=== PATIENT | female | born 1965 | race Caucasian/White ===

== ENCOUNTER 2016-04-12 14:14 | Day surgery (SDC) | payer MEDICARE ==
--- NOTE | ~2016-04-12 | OP ---
Record Of Operation [facility] [address] [place]. [address] NAME: SILVIA PLUMMER : 67 STATUS : [facility]#: [id number] AGE: 50 ADM/REG DATE : 04/12/16 MR#: [id number] REPORT SERV DATE: 04/13/16 DICTATED BY: Rosalina HOLGUIN DATE: 04/12/16 REPORT STATUS : Draft TRANSCRIBED BY: STARLA DATE: 04/12/16 DATE OF PROCEDURE: 04/12/2016 PREOPERATIVE DIAGNOSIS: Left proximal ureteral stone. POSTOPERATIVE DIAGNOSIS: Left proximal ureteral stone. PROCEDURE: Left ureteral ESWL, retreatment. SURGEON: Rosalina Holguin M.D. ANESTHESIA: MAC. COMPLICATIONS: None. DRAINS: None. BRIEF HISTORY: Ms. Plummer is a 50-year-old, white female, who presented with an 8 mm left proximal ureteral stone and underwent ESWL on 03/18/2016. She passed some small fragments that had considerable residual stone. She has now 8 mm stone at L3-L4 on the left. She is here for retreatment. The risks of bleeding, infection, anesthesia, injury to adjacent organs, etc. were all discussed. There were no unanswered questions. DESCRIPTION OF PROCEDURE: Under excellent MAC anesthesia, the patient was placed supine on the [facility] [employer] [facility] [employer] lithotripsy unit #2. The aforementioned stone was localized at F2, and a total of 4000 shocks at a power level of up to 9.0 were delivered to the stone. The patient tolerated the procedure well and will be discharged as an outpatient with the following instructions. DISCHARGE INSTRUCTIONS: 1. Home today. 2. Strain all urine and save any fragments. 3. Percocet 5/325 one to two p.o. q.4 hours p.r.n. pain, #20. 4. Resume tamsulosin. 5. Follow in my office in one to two weeks with a KUB. If she is unable to pass the stone, the next step would be endoscopy. CHRISTEN/STARLA Rosalina Holguin M.D. / [id number] Record Of Operation [facility] [address] [place]. [address] NAME: SILVIA PLUMMER : 67 STATUS : [facility]#: [id number] AGE: 50 ADM/REG DATE : 04/12/16 MR#: [id number] REPORT SERV DATE: 04/13/16 DICTATED BY: Rosalina HOLGUIN DATE: 04/12/16 REPORT STATUS : Draft TRANSCRIBED BY: STARLA DATE: 04/12/16 CC: Balta Dalal MD
[~2016-04-12 14:14] MED LIST: AMIT25 PO; AMIT50 PO; ASAB PO; BONTRIL PDM35 MG PO; BUTRANS 15 MCG TOP; CAT2 PO; CELEBREX2 PO; DURICEF PO; EXCEDRIN TENSI1 EACH PO; FLEX PO; FLOMAX4 PO; L40 PO; LOP25 PO; LORTAB 5 PO; LOTENSIN HCT1 TA1 PO; LOTREL1 CA4 PO; LOTREL1 CA5 PO; MEDROLPAK4 PO; MOBIC7.5 PO; MSCONT15 PO; NEUR600 PO; NEUR800 PO; NEXIUM20 M1 PO; NORV10 PO; NORV5 PO; OXYCOD PO; PCET PO; PHENDIMETRAZ35 MG OR; PHENDIMETRAZ35 MG PO; PRILO PO; PRILOSEC OTC20 MG PO; PROTONIX PO; PROTONIXIV IV; PYR200 PO; REMERON30 MG PO; VITAMIN B-122500 MCG SL; ZOFRAN4 PO
[2016-04-12 15:05] LABS: WBC (NOT ORDERED) (RFLEX) 0 (0-5)
[2016-04-12 15:11] LABS: ASCORBIC ACID (UR NOT ORDER) NEG (NEG); BILIRUBIN, URINE NEGATIVE (NEG); KETONE, URINE NEGATIVE (NEG); LEUKOCYTE ESTERASE(NOT OR NEG (NEG)
[2016-04-12 15:12] LABS: HEMATOCRIT 40.8 % (36.0-48.0); HEMOGLOBIN 13.4 g/dL (12.0-16.0)
[2016-04-12 15:20] LABS: BUN (BLOOD UREA NITROGEN) 10 MG/DL (6-23); CALCIUM, SERUM 8.8 MG/DL (8.5-10.4); CHLORIDE, SERUM 104 MMOL/L (96-112); CO2 (CARBON DIOXIDE) 29 MMOL/L (24-34); CREATININE 0.91 MG/DL (0.55-1.02); GFR AFRICAN AMERICAN 86 ML/MIN (>=60); GFR NON AFRICAN AMERICAN 74 ML/MIN (>=60); GLUCOSE, SERUM 101 MG/DL (60-99); POTASSIUM, SERUM 3.8 MMOL/L (3.5-5.3); SODIUM, SERUM 141 MMOL/L (135-148)
== END 2016-04-12 19:46 | disposition home or self-care (01) ==
LOC: SDC 14:14
PROC: 0TF7XZZ Fragmentation in Left Ureter, External Approach (ICD-10-PCS; principal; 2016-04-12 16:00)
DX: N20.1 Calculus of ureter (principal); I10 Essential (primary) hypertension; K21.9 Gastro-esophageal reflux disease without esophagitis; Z91.048 Other nonmedicinal substance allergy status; Z90.89 Acquired absence of other organs; M19.90 Unspecified osteoarthritis, unspecified site; M54.9 Dorsalgia, unspecified; Z90.710 Acquired absence of both cervix and uterus; Z79.899 Other long term (current) drug therapy; Z87.442 Personal history of urinary calculi; F32.9 Major depressive disorder, single episode, unspecified; F43.9 Reaction to severe stress, unspecified
CPT/HCPCS: 50590; 74000; 80048; 81001; 85014; 85018; 93005; A9270-GY; J0360; J1170; J2405; J2550

== ENCOUNTER 2016-04-30 12:15 | Day surgery (SDC) | payer MEDICARE ==
--- NOTE | ~2016-04-30 | OP ---
Record Of Operation [facility] [address] [place]. [address] NAME: SILVIA PLUMMER : 67 STATUS : REG [facility] PAT#: [id number] AGE: 50 ADM/REG DATE : 04/30/16 MR#: [id number] REPORT SERV DATE: 04/30/16 DICTATED BY: Rosalina HOLGUIN DATE: 04/30/16 REPORT STATUS : Draft TRANSCRIBED BY: MODL DATE: 04/30/16 DATE OF PROCEDURE: 04/30/2016 PREOPERATIVE DIAGNOSIS: Recalcitrant left proximal ureteral stone. POSTOPERATIVE DIAGNOSIS: Recalcitrant left proximal ureteral stone. PROCEDURES: Cystoscopy, left retrograde pyelography, ureteroscopy, laser lithotripsy, basket stone extraction, and double-J stent placement. SURGEON: Rosalina Holguin M.D. ANESTHESIA: General endotracheal. COMPLICATIONS: None. DRAINS: A 6-Latvian x 24 cm Contour double-J stent. BRIEF HISTORY: Ms. Plummer is a 50-year-old, white female, who presented with a 6 to 8 mm left proximal ureteral stone. She had ESWL x2 without success and is here for endoscopy. The risks of bleeding, infection, anesthesia, injury to adjacent organs, inability to access stone, and need for subsequent procedures, etc. were discussed. There were no unanswered questions. We also discussed stent misery. DESCRIPTION OF PROCEDURE: Under excellent general anesthesia, the patient was prepped and draped in a standard lithotomy position. Cystoscopy was performed with a 30-degree lens, revealed a normal bladder with normal orifices. I inserted a 5-Latvian open-end ureteral catheter and dilutely opacified the ureter with a filling defect in the aforementioned place just above the sacrum. I inserted the angled glidewire up to the kidney and then alongside the wire, I inserted a short rigid ureteroscope, which passed up to the stone. The stone initially looked like it might be primarily extracted, but I could not, therefore, I inserted a 200 micron holmium YAG laser fiber and fragmented the stone into passable or extractable pieces. I suppose I extracted six pieces that will be sent for analysis. The patient tolerated the procedure well. I then retrofitted the wire in the cystoscope and placed a 6-Latvian x 24 cm Contour double-J stent, which coiled nicely in the renal pelvis and bladder. I plan to discharge Ms. Plummer as an outpatient with the following instructions. DISCHARGE INSTRUCTIONS: 1. Home today. 2. Percocet 5/325 one to two p.o. q.4 hours p.r.n. pain, #25. 3. Pyridium 200 mg one p.o. t.i.d., p.r.n. bladder pain #15 with three refills. 4. Follow up in my office in seven to ten days for cysto and stent removal. Record Of Operation [facility] [address] [place]. [address] NAME: SILVIA PLUMMER : 67 STATUS : REG [facility] PAT#: [id number] AGE: 50 ADM/REG DATE : 04/30/16 MR#: [id number] REPORT SERV DATE: 04/30/16 DICTATED BY: Rosalina HLOGUIN DATE: 04/30/16 REPORT STATUS : Draft TRANSCRIBED BY: STARLA DATE: 04/30/16 CHRISTEN/STARLA Rosalina Holguin M.D. / [id number] CC: Balta Dalal MD
[2016-04-30 12:42] LABS: HEMATOCRIT 39.9 % (36.0-48.0); HEMOGLOBIN 12.9 g/dL (12.0-16.0)
[2016-04-30 12:54] LABS: BUN (BLOOD UREA NITROGEN) 12 MG/DL (6-23); CALCIUM, SERUM 9.4 MG/DL (8.5-10.4); CHLORIDE, SERUM 104 MMOL/L (96-112); CO2 (CARBON DIOXIDE) 28 MMOL/L (24-34); CREATININE 0.95 MG/DL (0.55-1.02); GFR AFRICAN AMERICAN 82 ML/MIN (>=60); GFR NON AFRICAN AMERICAN 70 ML/MIN (>=60); GLUCOSE, SERUM 108 MG/DL (60-99); POTASSIUM, SERUM 4.3 MMOL/L (3.5-5.3); SODIUM, SERUM 141 MMOL/L (135-148)
[2016-05-03 11:37] LABS: STONE COMPOSITION TWO DNR (())
== END 2016-04-30 18:32 | disposition home or self-care (01) ==
LOC: SDC 12:15
PROC: 0T778DZ Dilation of Left Ureter with Intraluminal Device, Via Natural or Artificial Opening Endoscopic (ICD-10-PCS; 2016-04-30)
PROC: 0TF78ZZ Fragmentation in Left Ureter, Via Natural or Artificial Opening Endoscopic (ICD-10-PCS; principal; 2016-04-30 14:00)
DX: N20.1 Calculus of ureter (principal); I10 Essential (primary) hypertension; M19.90 Unspecified osteoarthritis, unspecified site; M54.17 Radiculopathy, lumbosacral region; F32.9 Major depressive disorder, single episode, unspecified; Z91.048 Other nonmedicinal substance allergy status; Z88.3 Allergy status to other anti-infective agents; Z90.89 Acquired absence of other organs; Z98.1 Arthrodesis status; Z87.442 Personal history of urinary calculi; Z90.710 Acquired absence of both cervix and uterus; Z98.891 History of uterine scar from previous surgery; Z79.899 Other long term (current) drug therapy; Z79.891 Long term (current) use of opiate analgesic
CPT/HCPCS: 74420; 80048; 82365; 85014; 85018; A9270-GY; C1758; C1769; C2617; J1170; J2250; J2405; J2710; J3010; Q9967

== ENCOUNTER 2016-05-17 20:13 | Emergency (ER) | payer MEDICARE ==
[2016-05-17 20:54] LABS: BASOPHILS 0.1 %; BASOPHILS ABSOLUTE 0.01 10/3/uL (0.0-0.16); EOSINOPHILS ABSOLUTE 0.07 10/3/uL (0.0-0.53); ER CBC TAT 0 Hrs 05 Mins; HEMATOCRIT 40.4 % (36.0-48.0); HEMOGLOBIN 13.3 g/dL (12.0-16.0); IMMATURE GRANULOCYTES 0.1 %; IMMATURE GRANULOCYTES ABSOLUTE 0.01 10/3/uL (0.0-0.11); LYMPHOCYTES 7.2 %; LYMPHOCYTES ABSOLUTE 0.51 10/3/uL (0.67-4.30); MEAN CORPUS HGB CONC 32.9 g/dL (32.0-36.0); MEAN CORPUSCULAR HEMOGLOB 26.4 pg (26.0-34.0); MEAN CORPUSCULAR VOLUME 80.3 fL (80-100); MEAN PLATELET VOLUME 9.6 fL (9.2-13.0); MONOCYTES 3.6 %; MONOCYTES ABSOLUTE 0.25 10/3/uL (0.21-1.20); NEUTROPHILS ABSOLUTE 6.19 10/3/uL (2.02-8.40); PLATELET COUNT 285 10/3/uL (150-400); RED CELL COUNT 5.03 10/6/uL (4.0-5.6)
[2016-05-17 20:55] LABS: MANUAL DIFF NO %
[2016-05-17 21:01] LABS: PARTIAL THROMBO TIME 28.7 SEC (22.5-37.2)
[2016-05-17 21:03] LABS: PROTIME (NOT ORD) 13.3 SEC (12.0-14.5)
[2016-05-17 21:09] LABS: BUN (BLOOD UREA NITROGEN) 11 MG/DL (6-23); CHEST PAIN PROFILE TAT 0 Hrs 20 Mins; CHLORIDE, SERUM 103 MMOL/L (96-112); CO2 (CARBON DIOXIDE) 24 MMOL/L (24-34); GFR AFRICAN AMERICAN 87 ML/MIN (>=60); GFR NON AFRICAN AMERICAN 75 ML/MIN (>=60); GLUCOSE, SERUM 109 MG/DL (60-99); SODIUM, SERUM 137 MMOL/L (135-148); TROPONIN I <0.02 NG/ML (<0.05)
[2016-05-17 21:10] LABS: CALCIUM, SERUM 8.3 MG/DL (8.5-10.4)
== END 2016-05-17 23:00 | disposition left against medical advice (07) ==
LOC: ER 20:13
PROVIDERS: Emergency Medicine
DX: Z53.21 Procedure and treatment not carried out due to patient leaving prior to being seen by health care provider (principal)
CPT/HCPCS: 80048; 83735; 84484; 85025; 85610; 85730; 93005